=== PATIENT | female | born 1995 | race Caucasian/White ===

== ENCOUNTER 2019-03-27 03:32 | Emergency (ER) | payer OTHER ==
[~2019-03-27] VITALS: Ht 157.5 cm; Wt 52.2 kg
[~2019-03-27 03:32] MED LIST: AMOXICILLIN400 MG PO; AMOXICILLIN875 MG PO; AUGMENTIN 875875 M1 PO; IBUPROFEN 600600 M1 PO; IMODIUM ADVANC1 EAC1 PO; NAPROXEN 375 M375 M1 PO; NOHOMEMEDICATIONS; TRAMADOL 50 MG50 MG PO; ZOFRAN4 MG PO
[2019-03-27 06:54] VITALS: BP 107/75
== END 2019-03-27 06:56 | disposition home or self-care (01) ==
LOC: M.ERS 03:32
DX: F10.129 Alcohol abuse with intoxication, unspecified (principal)